=== PATIENT | male | born 1990 | race Caucasian/White ===

== ENCOUNTER 2020-12-03 11:41 | Inpatient (IN) | payer BC ==
[~2020-12-03] VITALS: Ht 182.9 cm; Wt 120.0 kg
--- NOTE | 2020-12-03 11:44 | NUR ---
[email or web address]
[2020-12-03] MEDS ORDERED: HYDROmorphone 1 MG/ML, 1ML INJ ONE (12:21)
[2020-12-03] MEDS ORDERED: PROMETHAZINE 25 MG/ML, 1ML ONE (12:21)
[2020-12-03] MEDS ORDERED: MAALOX/HYOSCYAMINE/LIDOCAINE 45 ML BTL ONE (12:22)
[2020-12-03] MEDS ORDERED: LACTATED RINGERS 1,000 ML IV ONE (12:30)
[2020-12-03] MEDS ORDERED: SODIUM CHLORIDE FLUSH 10ML SYR IVF ONE (12:30)
[2020-12-03] MEDS ORDERED: HYDROmorphone 1 MG/ML, 1ML INJ IV ONE (12:30)
[2020-12-03] MEDS ORDERED: PROMETHAZINE 25 MG/ML, 1ML IM ONE ×2 (12:30→14:30)
[2020-12-03] MEDS ORDERED: MAALOX/HYOSCYAMINE/LIDOCAINE 45 ML BTL PO ONE (12:30)
--- NOTE | 2020-12-03 12:39 | NUR ---
PT CAME IN [place] AND ABD PAIN. PT WS SEEN AT [facility] FOR SAME BUT SAYS "THEY DID NOTHING TO HELP ME". PT MEDICATED PER MAR - STATES HE FEELS MUCH BETTER. PT RESTING IN GURNEY. EYES CLOSED. RESP EVEN AND UNLABORED. CONNECTED TO MONITOTING EQUIPMENT. PLACED ON 2 LITERS VIA NC.
[2020-12-03 12:52] LABS: BASOPHILS % (AUTO) 0 % (0-1); EOSINOPHILS % (AUTO) 0 % (1-7); LYMPHOCYTES % (AUTO) 15 % (22-44); MEAN CORPUSCULAR HEMOGLOBIN 28.1 pg (27.5-34.5); MEAN CORPUSCULAR HGB CONC 34.4 g/dL (33.2-36.2); MEAN PLATELET VOLUME 8.1 fL (7.4-10.4); MONOCYTES % (AUTO) 8 % (2-9); NEUTROPHILS % (AUTO) 76 % (42-75); PLATELET COUNT 349 x10^3/uL (130-400); RED BLOOD COUNT 5.71 x10^6/uL (4.38-5.82); RED CELL DISTRIBUTION WIDTH 13.3 % (9.4-14.8)
[2020-12-03 12:58] LABS: MD NO
[2020-12-03 13:06] LABS: ALBUMIN 4.6 g/dL (3.4-5.0); ANION GAP 14 mmol/L (5-15); CALCIUM 9.3 mg/dL (8.5-10.1); CHLORIDE 104 mmol/L (98-107); CREATININE 1.18 mg/dL (0.7-1.3)
[2020-12-03 13:08] LABS: ALANINE AMINOTRANSFERASE 71 U/L (12-78); ALKALINE PHOSPHATASE 68 U/L (45-117); BILIRUBIN,TOTAL 1.5 mg/dL (0.2-1.0); TOTAL PROTEIN 8.4 g/dL (6.4-8.2)
[2020-12-03 13:28] LABS: ACETONE, SERUM Moderate(40mg/dL) (Negative)
[2020-12-03] MEDS ORDERED: METOCLOPRAMIDE 5 MG/ML, 2ML ONE (13:29)
[2020-12-03] MEDS ORDERED: POTASSIUM CHLORIDE 40 MEQ in SODIUM CHLORIDE 0.9% 500 ML IV ONE (13:30)
[2020-12-03] MEDS ORDERED: METOCLOPRAMIDE 5 MG/ML, 2ML IVPush ONE (13:30)
[2020-12-03] MEDS ORDERED: hydrALAzine 20 MG/ML, 1ML IVPush PRN (14:30)
[2020-12-03] MEDS ORDERED: GUAIFENESIN/DM 200-20MG, 10ML UDC PO PRN (14:30)
[2020-12-03] MEDS ORDERED: POLYETHYLENE GLYCOL 17 GM PACKET PO PRN (14:30)
[2020-12-03] MEDS ORDERED: MELATONIN 5 MG TABLET PO PRN (14:30)
[2020-12-03] MEDS ORDERED: ACETAMINOPHEN 325 MG TABLET PO PRN (14:30)
[2020-12-03 15:00] VITALS: BP 157/108
[2020-12-03] MEDS: ENOXAPARIN 40 MG/0.4 ML SQ SCH (15:03)
[2020-12-03] MEDS: KETOROLAC 30 MG/1 ML IV PRN (15:04)
[2020-12-03] MEDS: METOCLOPRAMIDE 5 MG/ML, 2ML IVPush PRN (15:04)
[2020-12-03 15:40] LABS: BASOPHILS % (AUTO) 1 % (0-1); EOSINOPHILS % (AUTO) 0 % (1-7); LYMPHOCYTES % (AUTO) 11 % (22-44); MEAN CORPUSCULAR HEMOGLOBIN 28.3 pg (27.5-34.5); MEAN CORPUSCULAR HGB CONC 34.4 g/dL (33.2-36.2); MONOCYTES % (AUTO) 5 % (2-9); NEUTROPHILS % (AUTO) 84 % (42-75); PLATELET COUNT 322 x10^3/uL (130-400); RED BLOOD COUNT 5.33 x10^6/uL (4.38-5.82); RED CELL DISTRIBUTION WIDTH 13.2 % (9.4-14.8)
[2020-12-03 15:41] LABS: MD NO
[2020-12-03] MEDS: morphine SULFATE 10 MG/ML, 1ML IVPush PRN ×3 (16:26→23:55)
[2020-12-03] MEDS: ONDANSETRON 2MG/ML, 2ML IVPush PRN (16:26)
[2020-12-03] MEDS: LACTATED RINGERS 1,000 ML IV SCH (17:36)
[2020-12-03] MEDS: PROMETHAZINE 25 MG/ML, 1ML IM PRN (17:40)
[2020-12-03] MEDS ORDERED: DIPHENHYDRAMINE 50 MG/ML, 1ML IVPush ONE (18:30)
[2020-12-03 20:00] VITALS: BP 161/94
[2020-12-04] MEDS: PROMETHAZINE 25 MG/ML, 1ML IM PRN ×2 (00:14→15:13)
[2020-12-04] MEDS: KETOROLAC 30 MG/1 ML IV PRN ×2 (00:55→15:13)
[2020-12-04] MEDS: METOCLOPRAMIDE 5 MG/ML, 2ML IVPush PRN (00:55)
[2020-12-04 01:47] VITALS: BP 145/88
[2020-12-04] MEDS: LACTATED RINGERS 1,000 ML IV SCH ×2 (03:00→15:48)
[2020-12-04] MEDS: ONDANSETRON 2MG/ML, 2ML IVPush PRN ×2 (03:00→13:47)
[2020-12-04] MEDS: morphine SULFATE 10 MG/ML, 1ML IVPush PRN ×2 (03:01→13:47)
[2020-12-04 06:17] LABS: BASOPHILS % (AUTO) 0 % (0-1); EOSINOPHILS % (AUTO) 0 % (1-7); LYMPHOCYTES % (AUTO) 25 % (22-44); MEAN CORPUSCULAR HEMOGLOBIN 28.3 pg (27.5-34.5); MEAN CORPUSCULAR HGB CONC 34.2 g/dL (33.2-36.2); MEAN PLATELET VOLUME 8.1 fL (7.4-10.4); MONOCYTES % (AUTO) 8 % (2-9); NEUTROPHILS % (AUTO) 66 % (42-75); PLATELET COUNT 293 x10^3/uL (130-400); RED BLOOD COUNT 4.99 x10^6/uL (4.38-5.82); RED CELL DISTRIBUTION WIDTH 13.2 % (9.4-14.8)
[2020-12-04 06:21] LABS: MD NO
[2020-12-04 06:28] LABS: ALANINE AMINOTRANSFERASE 61 U/L (12-78); ALBUMIN 3.6 g/dL (3.4-5.0); ANION GAP 9 mmol/L (5-15); CALCIUM 8.4 mg/dL (8.5-10.1); CHLORIDE 107 mmol/L (98-107)
[2020-12-04] MEDS: OMEPRAZOLE 20 MG CAPSULE.DR PO SCH (06:29)
[2020-12-04 06:30] LABS: ALKALINE PHOSPHATASE 50 U/L (45-117); CREATININE 0.84 mg/dL (0.7-1.3); TOTAL PROTEIN 6.9 g/dL (6.4-8.2)
[2020-12-04 07:49] VITALS: BP 131/89
[2020-12-04 13:40] VITALS: BP 140/100
[2020-12-04] MEDS: ENOXAPARIN 40 MG/0.4 ML SQ SCH (13:48)
[2020-12-04 18:09] VITALS: BP 147/90
[2020-12-04 19:46] VITALS: BP 142/93
[2020-12-04] MEDS: METOCLOPRAMIDE 5 MG/ML, 2ML IVPush SCH (20:26)
[2020-12-05] MEDS: LACTATED RINGERS 1,000 ML IV SCH ×2 (00:07→08:11)
[2020-12-05 01:06] VITALS: BP 123/85
[2020-12-05] MEDS: METOCLOPRAMIDE 5 MG/ML, 2ML IVPush SCH ×3 (02:35→14:30)
[2020-12-05 05:11] LABS: BASOPHILS % (AUTO) 1 % (0-1); EOSINOPHILS % (AUTO) 1 % (1-7); LYMPHOCYTES % (AUTO) 28 % (22-44); MEAN CORPUSCULAR HEMOGLOBIN 28.6 pg (27.5-34.5); MEAN CORPUSCULAR HGB CONC 34.9 g/dL (33.2-36.2); MEAN PLATELET VOLUME 7.7 fL (7.4-10.4); MONOCYTES % (AUTO) 10 % (2-9); NEUTROPHILS % (AUTO) 61 % (42-75); PLATELET COUNT 259 x10^3/uL (130-400); RED BLOOD COUNT 4.61 x10^6/uL (4.38-5.82); RED CELL DISTRIBUTION WIDTH 13.3 % (9.4-14.8)
[2020-12-05 05:12] LABS: MD NO
[2020-12-05 05:25] LABS: ALANINE AMINOTRANSFERASE 84 U/L (12-78); ALBUMIN 3.4 g/dL (3.4-5.0); ANION GAP 7 mmol/L (5-15); CALCIUM 8.1 mg/dL (8.5-10.1); CHLORIDE 108 mmol/L (98-107)
[2020-12-05 05:31] LABS: ALKALINE PHOSPHATASE 50 U/L (45-117); CREATININE 0.86 mg/dL (0.7-1.3); TOTAL PROTEIN 6.3 g/dL (6.4-8.2)
[2020-12-05] MEDS: OMEPRAZOLE 20 MG CAPSULE.DR PO SCH (06:27)
[2020-12-05] MEDS: PROMETHAZINE 25 MG/ML, 1ML IM PRN (06:27)
[2020-12-05 07:15] VITALS: BP 134/85
[2020-12-05] MEDS ORDERED: MORPHINE SULFATE 4 MG/ML, 1ML IVPush PRN (08:30)
[2020-12-05] MEDS: ENOXAPARIN 40 MG/0.4 ML SQ SCH (14:30)
[2020-12-05 14:41] VITALS: BP 149/90
[2020-12-05] MEDS ORDERED: OMEP-110 PO (16:47)
[2020-12-05] MEDS ORDERED: METO10TA82 PO (16:47)
[2020-12-05] MEDS ORDERED: PROM50SU7 PR (16:47)
[2020-12-05] MEDS ORDERED: ONDA4TAB7 PO (16:47)
== END 2020-12-05 17:41 | disposition home or self-care (01) | DRG 392 ==
LOC: SUATTDRO 13:05 → ED 13:21 → 3N 13:48 → OBSVTOIN 14:46 → ED 15:01
PROVIDERS: ADMIT Hospitalist; ATTEND Internal Medicine
DX: R11.2 Nausea with vomiting, unspecified (principal); F12.99 Cannabis use, unspecified with unspecified cannabis-induced disorder; E87.6 Hypokalemia; D72.828 Other elevated white blood cell count; E86.0 Dehydration; Z91.040 Latex allergy status; Z91.048 Other nonmedicinal substance allergy status; Z88.7 Allergy status to serum and vaccine
CPT/HCPCS: 36415; 80053; 82010; 83690; 83735; 84100; 85025; 93005; 96361; 96372; 96374; 96375; G0378; J1170; J1650; J1885; J2405; J2550; J3480; J0360; J1200; J2270; J2765; J7040; J7120